=== PATIENT | male | born 2005 | race Caucasian/White ===

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

== ENCOUNTER 2024-07-13 15:13 | Emergency (ER) | payer OTHER, BC ==
[2024-07-13 15:31] VITALS: BP 109/55; PULSE 65
[2024-07-13] MEDS: Sodium Chloride 0.9% 10 ML Syringe FLUSH PRN (15:32)
[2024-07-13] MEDS: fentaNYL 100 MCG/2 ML SDV IVPUSH ONE (15:33)
[2024-07-13] MEDS ORDERED: Propofol 200 MG/20 ML SDV ONE (16:50)
== END 2024-07-13 17:26 | disposition home or self-care (01) ==
LOC: JP.ED 15:13
DX: S52.552A Other extraarticular fracture of lower end of left radius, initial encounter for closed fracture (principal); Z88.2 Allergy status to sulfonamides; W11.XXXA Fall on and from ladder, initial encounter; Y93.89 Activity, other specified; Y99.0 Civilian activity done for income or pay
CPT/HCPCS: 01820-QZ; 73090-26-LT; 73090-LT; 76000; 96374; 99283; 99283-25; J2704; J3010